=== PATIENT | male | born 1950 | race Caucasian/White ===

== ENCOUNTER 2016-08-03 11:12 | Inpatient (IN) | payer BC, OTHER ==
--- NOTE | 2016-08-03 12:04 | PDOC ---
History of Present Illness - General History Source: Patient Exam Limitations: No Limitations - History of Present Illness Initial Comments: 08/03/16 12:13 The patient is a 65-year-old man, accompanied by family, with a significant past medical history of DVT and PE (right lower extremity/right lung (06/2016) who presents to the emergency department for further evaluation of right costochondrial pain since last night. Patient reports his recent history of both a DVT/PE, for which he was placed on Lovenox. Patient states that he underwent outpatient labs which showed an INR from 1.4-2.09. Patient was advised to stop his Lovenox for the past 4 days, by his Primary Care Physician and was advised to walk. Patient states that last night, he experienced right costochondrial pain, similar to his presentation when he was diagnosed with DVT/ PE. He denies any trauma/fall/recent strenuous activity. He states that his pain is sharp, intermittent, non-radiating with a 3-4/10 in severity and exacerbated when taking deep breathes. Patient does not provide any alleviating factors. He notes that his rib pain is also associated with right lower extremity pain/swelling and calf tenderness. He also notes that he experiences right thigh pain, but attributes these symptoms to his recent hip replacement surgery. He denies having extensive workup for genetic coagulopathy (such as Factor V Leiden) He denies symptoms of shortness of breath, chest pain, lightheadedness, dizziness, palpitations, weakness and parethesias to his lower extremities, back pain, neck pain, abdominal pain, nausea, vomiting, diarrhea. No urinary complaints. Allergies: Aspirin Past Surgical History: Left knee replacement. Right hip Replacement (05/2016). Social History: Never smoked. No ETOH and recreational drug use. <Idalia Rodríguez - Last Filed: 08/03/16 18:03> <[facility] - Last Filed: 08/03/16 21:57> - General Chief Complaint: Pain Stated Complaint: RT SIDE PAIN Past History <Idalia Rodríguez - Last Filed: 08/03/16 18:03> - Past Medical History Other medical history: DVT - Surgical History Orthopedic Surgery: Yes (lt knee replacement and rt hip replacement) - Psycho/Social/Smoking Cessation Hx Suicidal Ideation: No Smoking History: Never smoked Hx Alcohol Use: No Drug/Substance Use Hx: No <Med Cloud - Last Filed: 08/03/16 21:57> - Past Medical History Allergies/Adverse Reactions: Allergies Allergy/AdvReac Type Severity Reaction Status Date / Time aspirin Allergy Verified 08/03/16 11:21 Home Medications: Ambulatory Orders Warfarin Sodium [Coumadin] 2.5 mg PO DAILY 08/03/16 Review of Systems - Review of Systems Able to Perform ROS?: Yes Comments:: 08/03/16 12:13 GENERAL/CONSTITUTIONAL: No fever or chills. No weakness. HEAD, EYES, EARS, NOSE AND THROAT: No change in vision. No ear pain or discharge. No sore throat. CARDIOVASCULAR: No chest pain or shortness of breath. RESPIRATORY: No cough, wheezing, or hemoptysis. GASTROINTESTINAL: No nausea, vomiting, diarrhea or constipation. GENITOURINARY: No dysuria, frequency, or change in urination. MUSCULOSKELETAL: Yes: +Right costochondrial pain. +Right lower extremity pain/ swelling. +Right calf tenderness. +Right thigh pain. No neck or back pain. SKIN: No rash NEUROLOGIC: No headache, vertigo, loss of consciousness, or change in strength/ sensation. ENDOCRINE: No increased thirst. No abnormal weight change. HEMATOLOGIC/LYMPHATIC: No anemia, easy bleeding, or history of blood clots. ALLERGIC/IMMUNOLOGIC: No hives or skin allergy. <RodríguezMulugetaIdalia - Last Filed: 08/03/16 18:03> *Physical Exam - Vital Signs Last Vital Signs Temp Pulse Resp BP Pulse Ox 98.2 F 73 20 130/77 95 08/03/16 11:18 08/03/16 11:18 08/03/16 11:18 08/03/16 11:18 08/03/16 11:18 - Physical Exam Comments: 08/03/16 12:13 GENERAL: Awake, alert, and fully oriented, in no acute distress HEAD: No signs of trauma EYES: PERRLA, EOMI, sclera anicteric, conjunctiva clear ENT: Auricles normal inspection, hearing grossly normal, nares patent, oropharynx clear without exudates. Moist mucosa NECK: Normal ROM, supple, no lymphadenopathy, JVD, or masses LUNGS: +There are a few crackled at the right base. Left is clear. No wheezes. HEART: Regular rate and rhythm, normal S1 and S2, no murmurs, rubs or gallops ABDOMEN: Soft, nontender, normoactive bowel sounds. No guarding, no rebound. No masses EXTREMITIES: Normal range of motion, bilateral below the knee swelling/ tenderness to palpation R>L. No clubbing or cyanosis. No cords, erythema. NEUROLOGICAL: Cranial nerves II through XII grossly intact. Normal speech. <Idalia Rodríguez - Last Filed: 08/03/16 18:03> - Vital Signs Last Vital Signs Temp Pulse Resp BP Pulse Ox 98.2 F 73 20 130/77 95 08/03/16 11:18 08/03/16 11:18 08/03/16 11:18 08/03/16 11:18 08/03/16 11:18 <[facility] - Last Filed: 08/03/16 21:57> ED Treatment Course - LABORATORY CBC & Chemistry Diagram: 08/03/16 12:23 08/03/16 12:23 - RADIOLOGY Radiograph Interpretation: 08/03/16 13:50 EXAM: US/DUPLEX VASCUL US-2LEGS IMPRESSION: Real time and doppler evaluation of both lower extremities demonstrates the following: There is extensive DVT within the right lower extremity involving the superficial femoral, popliteal and posterior tibial veins. These veins are incompletely compressible. The common and deep femoral, as well as the greater saphenous veins are patent. On the left side, there is no evidence of deep venous thrombosis within the common, deep and superficial femoral veins, as well as the popliteal and posterior tibial veins. The greater saphenous vein is also patent. These veins are fully compressible, as well. <Idalia Rodríguez - Last Filed: 08/03/16 18:03> - LABORATORY CBC & Chemistry Diagram: 08/03/16 12:23 08/03/16 12:23 <Mde Cloud - Last Filed: 08/03/16 21:57> Medical Decision Making - Medical Decision Making 08/03/16 18:04 A call was placed to Medical Doctor acid conditioning worker, Dr. Street at [phone]. Immediate response. Case was discussed. Accepts case. <Idalia Rodríguez - Last Filed: 08/03/16 18:03> *DC/Admit/Observation/Transfer - Attestations Scribe Attestion: 08/03/16 12:13 Documentation prepared by Idalia Rodríguez, acting as medical professionals for Med Cloud MD. <Idalia Rodríguez - Last Filed: 08/03/16 18:03> - Discharge Dispostion Admit: Yes <[facility] - Last Filed: 08/03/16 21:57> Diagnosis at time of Disposition: Pulmonary embolism on right DVT (deep venous thrombosis) Qualifiers: DVT location: lower extremity Affected thrombotic vein of extremity: unspecified lower extremity distal vein Laterality: right Chronicity: acute Qualified Code(s): I82.4Z1 - Acute embolism and thrombosis of unspecified deep veins of right distal lower extremity - Discharge Dispostion Condition at time of disposition: Stable - Referrals
[2016-08-03 12:45] LABS: BASOPHIL 0.9 % (0-2.0); EOSINOPHIL 4.6 % (0-4.5); MCH 29.8 pg (25.7-33.7); MCHC 32.9 g/dl (32.0-35.9); MEAN CELL VOLUME 90.5 fl (80-96); MEAN PLT VOLUME 8.4 fl (7.5-11.1); NEUTROPHILS 56.2 % (42.8-82.8); PLATELET COUNT 212 K/MM3 (134-434); RDW 13.9 % (11.9-15.9); WHITE BLOOD COUNT 6.2 K/mm3 (4.0-10.0)
[2016-08-03 13:00] LABS: INR 2.78 (0.82-1.09); PROTHROMBIN TIME (PATIENT) 31.2 SEC (9.98-11.88)
[2016-08-03 13:03] LABS: ACTIVATED PTT 45.5 SECONDS (26.9-34.4)
[2016-08-03 13:12] LABS: ALBUMIN 4.1 g/dl (3.4-5.0); ALK PHOS 122 U/L (45-117); ANION GAP 9 (8-16); BILIRUBIN,TOTAL 0.3 mg/dL (0.2-1.0); CALCIUM 9.2 mg/dL (8.5-10.1); CO2 28 mmol/L (21-32); CREATININE 0.9 mg/dL (0.7-1.3); GLUCOSE,RANDOM 97 mg/dL (74-106); SGOT/AST 20 U/L (15-37); SGPT/ALT 51 U/L (12-78); TOT PROT 7.5 g/dl (6.4-8.2)
[2016-08-03 13:15] LABS: TROPONIN I < 0.02 ng/ml (0.00-0.05)
[2016-08-03] MEDS ORDERED: SODIUM CHLORIDE 1,000 ML IV STA (13:32)
--- NOTE | 2016-08-03 19:52 | HP ---
Admitting History and Physical - Primary Care Physician PCP: Trini Street - Admission Chief Complaint: R SANYA PAINAND SWELLING History of Present Illness: 65-year-old man, accompanied by family, with a significant past medical history of DVT and PE (right lower extremity/right lung (06/2016) who presents to the emergency department for chest pain. Patient reports his recent history of both a DVT/PE, for which he was placed on Lovenox/coumadin.Patient states that he underwent outpatient labs which showed an INR from 1.4-2.09. Patient was advised to stop his Lovenox for the past 4 days, by his Primary Care Physician and was advised to walk. Patient states that last night, he experienced right costochondrial pain, similar to his presentation when he was diagnosed with DVT/PE. He states that his pain is sharp, intermittent, non- radiating with a 3-4/10 in severity and exacerbated when taking deep breathes. - Past Medical History Pulmonary: Yes: Pulmonary Embolus Heme/Onc: Yes: Other (DVT) - Smoking History Smoking history: Never smoked - Alcohol/Substance Use Hx Alcohol Use: No Home Medications - Allergies Allergies/Adverse Reactions: Allergies Allergy/AdvReac Type Severity Reaction Status Date / Time aspirin Allergy Verified 08/03/16 11:21 - Home Medications Home Medications: Ambulatory Orders Warfarin Sodium [Coumadin] 2.5 mg PO DAILY 08/03/16 Physical Examination Vital Signs: Vital Signs Temperature 98.2 F 08/03/16 11:18 Pulse Rate 58 L 08/03/16 18:42 Respiratory Rate 18 08/03/16 18:42 Blood Pressure 115/57 08/03/16 18:42 O2 Sat by Pulse Oximetry (%) 98 08/03/16 18:42 Constitutional: Yes: No Distress HENT: Yes: Atraumatic Neck: Yes: Supple Cardiovascular: Yes: Regular Rate and Rhythm Respiratory: Yes: CTA Bilaterally Gastrointestinal: Yes: Normal Bowel Sounds Edema: Yes Edema: RLE: 2+ Neurological: Yes: Alert, Oriented Problem List - Problems (1) DVT (deep venous thrombosis) Code(s): I82.409 - ACUTE EMBOLISM AND THOMBOS UNSP DEEP VN UNSP LOWER EXTREMITY Qualifiers: DVT location: lower extremity Affected thrombotic vein of extremity: unspecified lower extremity distal vein Laterality: right Chronicity: acute Qualified Code(s): I82.4Z1 - Acute embolism and thrombosis of unspecified deep veins of right distal lower extremity (2) Pulmonary embolism Code(s): I26.99 - OTHER PULMONARY EMBOLISM WITHOUT ACUTE COR PULMONALE Assessment/Plan Laboratory Results - last 24 hr 08/03/16 08/03/16 08/03/16 12:23 12:23 12:23 WBC 6.2 RBC 5.01 Hgb 14.9 Hct 45.4 MCV 90.5 MCHC 32.9 RDW 13.9 Plt Count 212 D MPV 8.4 D Neutrophils % 56.2 Lymphocytes % 28.9 Monocytes % 9.4 Eosinophils % 4.6 H Basophils % 0.9 INR 2.78 H D PTT (Actin FS) 45.5 H Sodium 141 Potassium 4.7 Chloride 104 Carbon Dioxide 28 Anion Gap 9 BUN 23 H Creatinine 0.9 Creat Clearance w eGFR > 60 Random Glucose 97 Calcium 9.2 Total Bilirubin 0.3 AST 20 ALT 51 D Alkaline Phosphatase 122 H Creatine Kinase Troponin I Total Protein 7.5 Albumin 4.1 08/03/16 12:23 WBC RBC Hgb Hct MCV MCHC RDW Plt Count MPV Neutrophils % Lymphocytes % Monocytes % Eosinophils % Basophils % INR PTT (Actin FS) Sodium Potassium Chloride Carbon Dioxide Anion Gap BUN Creatinine Creat Clearance w eGFR Random Glucose Calcium Total Bilirubin AST ALT Alkaline Phosphatase Creatine Kinase 55 Troponin I < 0.02 Total Protein Albumin 1.PE 2.DVT..r sanya 3.chest pain pt has been on coumadin, therapeutic came in for chest pain will monitor on tele now better chest ct has improved will get dr wolf involved will fu cardiac enzymes to r/o any heart damage
[2016-08-03] MEDS ORDERED: HYDROmorphone HCL CARPU-JECT 1 MG/1 ML DISP.SYRIN IVPB PRN (19:54)
[2016-08-03 22:33] LABS: INR 2.73 (0.82-1.09); PROTHROMBIN TIME (PATIENT) 30.7 SEC (9.98-11.88)
[2016-08-03 23:24] VITALS: BMI 31.3
[2016-08-04 09:46] LABS: INR 2.3 (0.82-1.09); PROTHROMBIN TIME (PATIENT) 25.7 SEC (9.98-11.88)
--- NOTE | 2016-08-04 11:40 | CONSULT ---
Consult - Past Medical History Pulmonary: Yes: Pulmonary Embolus - Alcohol/Substance Use Hx Alcohol Use: No - Smoking History Smoking history: Never smoked Home Medications - Allergies Allergies/Adverse Reactions: Allergies Allergy/AdvReac Type Severity Reaction Status Date / Time aspirin Allergy Verified 08/03/16 11:21 - Home Medications Home Medications: Ambulatory Orders Warfarin Sodium [Coumadin] 2.5 mg PO DAILY 08/03/16 Physical Exam Vital Signs: Vital Signs Temperature 97.3 F L 08/04/16 10:00 Pulse Rate 72 08/04/16 10:00 Respiratory Rate 20 08/04/16 10:00 Blood Pressure 123/63 08/04/16 10:00 O2 Sat by Pulse Oximetry (%) 95 08/04/16 09:00 Assessment/Plan Vascular Surgery 65-year-old man, accompanied by family, with a significant past medical history of DVT and PE (right lower extremity/right lung (06/2016) who presents to the emergency department for chest pain. Patient reports his recent history of both a DVT/PE, for which he was placed on Lovenox/coumadin.Patient states that he underwent outpatient labs which showed an INR from 1.4-2.09. Patient was advised to stop his Lovenox for the past 4 days, by his Primary Care Physician and was advised to walk. Patient states that last night, he experienced right costochondrial pain, similar to his presentation when he was diagnosed with DVT/ PE. He states that his pain is sharp, intermittent, non-radiating with a 3-4/ 10 in severity and exacerbated when taking deep breathes. - Past Medical History Pulmonary: Yes: Pulmonary Embolus Heme/Onc: Yes: Other (DVT) - Smoking History Smoking history: Never smoked - Alcohol/Substance Use Hx Alcohol Use: No Home Medications - Allergies Allergies/Adverse Reactions: Allergies Allergy/AdvReac Type Severity Reaction Status Date / Time aspirin Allergy Verified 08/03/16 11:21 - Home Medications Home Medications: Ambulatory Orders Warfarin Sodium [Coumadin] 2.5 mg PO DAILY 08/03/16 Physical Examination Head - NC/AT Lung - CTA heart - RRR abd - soft,nt,nd ext - right lower ext swelling. A/P RLE DVT with PE 1. Cont coumadin 5mg for 6 months. 2. Pain likely from exercising. 3. Cleared for DC from vascular standpoint. Dwight Holcomb DO
--- NOTE | 2016-08-04 13:49 | CONSULT ---
Consult Consult Specialty:: PULM/CCM Referred by:: PMD Reason for Consultation:: History of recent PE - History of Present Illness Chief Complaint: Pleuritic CP History of Present Illness: 65 M, well known to me from his recent admission for a Right segmental PE and RLE DVT. Discharged with coumadin with lovenox bridge. 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 [place] right sided costochondrial discomfort and presented to the ER. No fever or chills. No SOB. CT: No PE seen / resolving right basilar consolidation as compared to his previous CTA. - History Source History Provided By: Patient Limitations to Obtaining History: No Limitations - Past Medical History Pulmonary: Yes: Pulmonary Embolus - Alcohol/Substance Use Hx Alcohol Use: No - Smoking History Smoking history: Never smoked Home Medications - Allergies Allergies/Adverse Reactions: Allergies Allergy/AdvReac Type Severity Reaction Status Date / Time aspirin Allergy Verified 08/03/16 11:21 - Home Medications Home Medications: Ambulatory Orders Warfarin Sodium [Coumadin] 2.5 mg PO DAILY 08/03/16 Review of Systems - Review of Systems Constitutional: denies: Chills, Fever, Lethargy, Loss of Appetite, Malaise, Night Sweats, Unintentional Wgt. Loss Eyes: reports: No Symptoms HENT: reports: No Symptoms Neck: reports: No Symptoms Cardiovascular: reports: Chest Pain. denies: Edema, Palpitations, Shortness of Breath Respiratory: denies: Cough, Hemoptysis, SOB, SOB on Exertion, Wheezing Gastrointestinal: reports: No Symptoms Genitourinary: reports: No Symptoms Breasts: reports: No Symptoms Reported Musculoskeletal: reports: Muscle Cramps Integumentary: reports: No Symptoms Neurological: reports: No Symptoms Endocrine: reports: No Symptoms Hematology/Lymphatic: reports: No Symptoms Psychiatric: reports: No Symptoms Physical Exam Vital Sings: Vital Signs Temperature 97.3 F L 08/04/16 10:00 Pulse Rate 72 08/04/16 10:00 Respiratory Rate 20 08/04/16 10:00 Blood Pressure 123/63 08/04/16 10:00 O2 Sat by Pulse Oximetry (%) 95 08/04/16 09:00 Constitutional: Yes: Well Nourished, No Distress, Calm Eyes: Yes: Conjunctiva Clear, EOM Intact HENT: Yes: Atraumatic, Normocephalic Neck: Yes: Supple, Trachea Midline Cardiovascular: Yes: Regular Rate and Rhythm Respiratory: Yes: Regular, CTA Bilaterally ...Inspection: Yes: WNL ...Clubbing: No Gastrointestinal: Yes: WNL, Normal Bowel Sounds, Soft Renal/: Yes: WNL Musculoskeletal: Yes: WNL Extremities: Yes: WNL Edema: Yes Peripheral Pulses WNL: Yes Integumentary: Yes: WNL Neurological: Yes: WNL, Alert, Oriented ...Motor Strength: WNL Psychiatric: Yes: WNL, Alert, Oriented Imaging - Results Cat Scan: Report Reviewed, Image Reviewed Problem List - Problems (1) DVT (deep venous thrombosis) Code(s): I82.409 - ACUTE EMBOLISM AND THOMBOS UNSP DEEP VN UNSP LOWER EXTREMITY Qualifiers: DVT location: lower extremity Affected thrombotic vein of extremity: unspecified lower extremity distal vein Laterality: right Chronicity: acute Qualified Code(s): I82.4Z1 - Acute embolism and thrombosis of unspecified deep veins of right distal lower extremity (2) Pulmonary embolism on right Code(s): I26.99 - OTHER PULMONARY EMBOLISM WITHOUT ACUTE COR PULMONALE (3) Atelectasis of right lung Code(s): J98.11 - ATELECTASIS Assessment/Plan PLAN: Agree with vascular to complete a total of 6 months Coumadin No ABX as the RLL atelectasis/consolidation is significantly improved form the previous CTA No Pulmonary contraindication for D/C home Thank you. Dr Brito
--- NOTE | 2016-08-04 14:06 | DS ---
Physical Examination Vital Signs: Vital Signs Temperature 97.3 F L 08/04/16 10:00 Pulse Rate 72 08/04/16 10:00 Respiratory Rate 20 08/04/16 10:00 Blood Pressure 123/63 08/04/16 10:00 O2 Sat by Pulse Oximetry (%) 95 08/04/16 09:00 Discharge Summary Reason For Visit: DVT/PULMONARY EMBOLISM ON RIGHT Current Active Problems Atelectasis of right lung (Acute) DVT (deep venous thrombosis) (Acute) Pulmonary embolism on right (Acute) Condition: Stable - Instructions Referrals: STAFF,NOT ON [Primary Care Provider] - Disposition: HOME - Home Medications Comprehensive Discharge Medication List: Ambulatory Orders Warfarin Sodium [Coumadin] 2.5 mg PO DAILY 08/03/[address] wolf to be dc continue coumadin 5 mg po daily fu pmd to check inr
[2016-08-04 15:15] VITALS: BP 120/69; PULSE 65; TEMP 98.4
[2016-08-04] MEDS ORDERED: WARFARIN NA 5 MG TABLET (UD) PO SCH ×2 (15:30→18:00)
--- NOTE | 2016-08-04 16:33 | EKG ---
Test Reason : Blood Pressure : / mmHG Vent. Rate : 058 BPM Atrial Rate : 058 BPM P-R Int : 136 ms QRS Dur : 080 ms QT Int : 408 ms P-R-T Axes : 035 036 031 degrees QTc Int : 400 ms SINUS BRADYCARDIA OTHERWISE NORMAL ECG WHEN COMPARED WITH ECG OF 16-JUL-2016 02:42, NO SIGNIFICANT CHANGE WAS FOUND Confirmed by AMALIA DE LUNA MD ([id number]) on 08/04/2016 4:33:12 PM Referred By: Confirmed By:AMALIA DE LUNA MD
[2016-08-04] MEDS ORDERED: WARFARIN NA 2.5 MG TABLET (FP) PO SCH (18:00)
== END 2016-08-04 15:38 | disposition home or self-care (01) | DRG 299 ==
LOC: JER 11:12 → JERBED 18:50 → UNDOADMIN 18:50 → JERBED 19:52 → J5S 21:22 → JERBED 21:22
PROVIDERS: ADMIT Internal Medicine; ATTEND Internal Medicine
DX: I82.4Z1 Acute embolism and thrombosis of unspecified deep veins of right distal lower extremity (principal); I26.99 Other pulmonary embolism without acute cor pulmonale; J98.11 Atelectasis
CPT/HCPCS: 36415; 71020-TC; 71275-TC; 80053; 82550; 84484; 85025; 85610; 85730; 93005; 93010; 93970-TC; 99285-25